=== PATIENT | male | born 1990 | race Caucasian/White ===

== ENCOUNTER → 2019-04-18 | Emergency (ER) | payer SELFPAY | END | disposition left against medical advice (07) | LOC: ER 20:52 | DX: R21 Rash and other nonspecific skin eruption (principal) ==

== ENCOUNTER 2019-04-28 06:13 | Emergency (ER) | payer SELFPAY ==
[~2019-04-28] VITALS: Ht 187 cm; Wt 115.0 kg
[2019-04-28 06:40] LABS: BILIRUBIN,URINE NEGATIVE (NEGATIVE); CLARITY,URINE CLEAR; COLOR,URINE YELLOW; GLUCOSE, URINE (UA) NEGATIVE (NEGATIVE); KETONES,URINE NEGATIVE (NEGATIVE); LEUKOCYTE ESTERASE ,URINE NEGATIVE (NEGATIVE); NITRITE,URINE NEGATIVE (NEGATIVE); PH,URINE 5 (5-9); PROTEIN,URINE NEGATIVE (NEGATIVE); UROBILINOGEN,URINE NORMAL (NORMAL)
[2019-04-28] MEDS ORDERED: NAPR-1071 PO (06:43)
--- NOTE | 2019-04-28 06:43 | ED Back Pain ---
General Chief Complaint: Back Problems Stated Complaint: BACK & RT LEG PAIN Nursing Triage Note: C/O PAIN IN LOWER BACK AND DOWN RIGHT LEG Nursing Sepsis Screen: No Definite Risk Source of Information: Patient Exam Limitations: No Limitations History of Present Illness Date Seen by Provider: Apr 28, 2019 Time Seen by Provider: 06:21 Initial Comments Patient presents to ER by private conveyance with his significant other and chief complaint of back pain that started Friday while carrying some groceries out of the car, 5 days ago. He does not have a significant history of back pain, imaging or surgery. He went to the clinic and they gave him a shot of Toradol and a muscle relaxant. He put him on cyclobenzaprine and prednisone but no NSAIDs. He is not taking Tylenol. He has not seen a chiropractor, back brace or using topical creams. He does not have sciatic pain radiating below the level of his right knee. He does not have saddle anesthesia, incontinence of bowel or bladder or urinary hesitancy, weakness numbness or inability to walk. Allergies and Home Medications Allergies Coded Allergies: No Known Drug Allergies (Unverified , 04/28/19) Home Medications Naproxen 500 Mg Tablet, 500 MG PO BID Prescribed by: ALLEN PHILLIPS on 04/28/19 0643 Patient Home Medication List Home Medication List Reviewed: Yes Review of Systems Constitutional: No chills, No diaphoresis EENTM: No ear discharge, No ear pain Respiratory: No cough, No short of breath Cardiovascular: No chest pain, No edema Gastrointestinal: No abdominal pain, No nausea Past Xfskmbn-[id number]-Brbxng Hx Patient Social History Alcohol Use: Denies Use Recreational Drug Use: No Smoking Status: Former Smoker Type Used: Cigarettes Former Smoker, Quit: Mar 28, 2019 Recent Foreign Travel: No Contact w/Someone Who Travel: No Recent Infectious Disease Expo: No Physical Abuse: No Sexual Abuse: No Mistreated: No Fear: No Physical Exam Vital Signs Vital Signs - First Documented 04/28/19 06:18 Temp 36.8 Pulse 74 Resp 20 B/P (MAP) 138/87 (104) Pulse Ox 96 Capillary Refill : Less Than 3 Seconds Height, Weight, BMI Height: '" Weight: lbs. oz. kg; 32.00 BMI Method: General Appearance: WD/WN, Mild Distress HEENT: PERRL/EOMI, Pharynx Normal Neck: Full Range of Motion, Normal Inspection, Non Tender Cardiovascular: Regular Rate, Rhythm, Normal Peripheral Pulses Respiratory: No Accessory Muscle Use, No Respiratory Distress Back: Normal Inspection, No CVA Tenderness, Muscle Spasm (paralumbar), Vertebral Tenderness ( Lumbar) Extremity: Normal Capillary Refill, Normal Inspection Procedures/Interventions Progress Risks, benefits and alternatives were explained for a 2% lidocaine with epinephrine and 0.5% Marcaine without epinephrine injection to the L5-S1 facet joint. The patient agreed to do it. We used sterile technique, iodine and thoroughly clean the skin. We used a 25-gauge 1-1/2 inch needle to insert 3 cc of the mixture into the L5-S1 facet joint. Patient tolerated procedure well. Band-Aid was placed and the wound was hemostatic. Progress/Results/Core Measures Results/Orders Lab Results Laboratory Tests Test 04/28/19 06:18 Range/Units Urine Color YELLOW Urine Clarity CLEAR Urine pH 5 5-9 Urine Specific Ferdinand 1.020 1.016-1.022 Urine Protein NEGATIVE NEGATIVE Urine Glucose (UA) NEGATIVE NEGATIVE Urine Ketones NEGATIVE NEGATIVE Urine Nitrite NEGATIVE NEGATIVE Urine Bilirubin NEGATIVE NEGATIVE Urine Urobilinogen NORMAL NORMAL MG/DL Urine Leukocyte Esterase NEGATIVE NEGATIVE Urine RBC (Auto) 2+ H NEGATIVE Urine RBC 2-5 H /HPF Urine WBC RARE /HPF Urine Squamous Epithelial Cells RARE /HPF Urine Crystals NONE /LPF Urine Bacteria NEGATIVE /HPF Urine Casts NONE /LPF Urine Mucus NEGATIVE /LPF Urine Culture Indicated NO My Orders Orders - ALLEN PHILLIPS Ua Culture If Indicated (04/28/19 06:15) Ketorolac Injection (Toradol Injection) (04/28/19 06:45) Orphenadrine Injection (Norflex Injectio (04/28/19 06:45) Bupivacaine 0.5% Injection (Sensorcaine (04/28/19 06:45) Vital Signs/I&O 04/28/19 06:18 Temp 36.8 Pulse 74 Resp 20 B/P (MAP) 138/87 (104) Pulse Ox 96 Blood Pressure Mean: 104 Progress Progress Note : Time: 06:40 Progress Note Toradol, Norflex, Marcaine/lidocaine injection at the L5-S1 facet joint. Pain presents as lumbago with sciatica or so than kidney stones. He has no CVA tenderness to percussion. He likely has asymptomatic microscopic hematuria versus kidney stone. We did offer to do a CT scan and he has declined at this time. Departure Impression Primary Impression: Lumbago with sciatica, right side Qualified Codes: M54.41 - Lumbago with sciatica, right side Additional Impression: Asymptomatic microscopic hematuria Disposition: 01 HOME, SELF-CARE Condition: Stable Departure-Patient Inst. Decision time for Depature: 06:57 Referrals: NO,LOCAL PHYSICIAN (PCP/Family) Primary Care Physician Patient Instructions: Blood in the Urine (Hematuria) in Adults, Sciatica (DC) Add. Discharge Instructions: Obtain a back brace and wear it on the days that it helps. Use heating pad and topical creams such as icy hot, Biofreeze, etc. Do not lift more than 40 pounds for the next week. Follow-up with chiropractor and/or primary care for physical therapy. Start taking the naproxen 1 tablet twice a day on a schedule for the next 2 weeks. You can use Tylenol 1000 mg every 8 hours in addition for breakthrough pain. You may use the cyclobenzaprine for muscle spasm. Continue taking the prednisone. Follow-up with primary care in approximately 2-4 weeks to have the urine retested for blood. All discharge instructions reviewed with patient and/or family. Voiced understanding. Scripts Naproxen (Naprosyn) 500 Mg Tablet 500 MG PO BID for 14 Days, #28 TAB 0 Refills Prov: ALLEN PHILLIPS 04/28/19 Work/School Note: Work Release Form Date Seen in the Emergency Department: Apr 28, 2019 Return to Work: Apr 29, 2019 Restrictions: Need Release from Doctor Other Restrictions Listed Below: No lift, push, fur puller 40 pounds until 05/05/19. ALLEN PHILLIPS Apr 28, 2019 06:43
[2019-04-28] MEDS ORDERED: BUPIVACAINE 0.5% 30 ML (SENSORCAINE) VIAL INJ ONE (06:45)
[2019-04-28] MEDS ORDERED: KETOROLAC 30 MG/ML VIAL IM ONE (06:45)
[2019-04-28] MEDS ORDERED: ORPHENADRINE 60 MG/2 ML (NORFLEX) AMP IM ONE (06:45)
[2019-04-28 06:47] LABS: BACTERIA,URINE NEGATIVE /HPF; SQUAMOUS EPITHELIAL CELL,UR RARE /HPF; WBC,URINE RARE /HPF
[2019-04-28 07:01] VITALS: BP 138/87
== END 2019-04-28 07:02 | disposition home or self-care (01) ==
LOC: EDUNIT# 06:13 → ER 06:16
DX: M54.41 Lumbago with sciatica, right side (principal); R31.21 Asymptomatic microscopic hematuria; Z87.891 Personal history of nicotine dependence
CPT/HCPCS: 81000; 99284

== ENCOUNTER → 2019-05-14 | Outpatient (CLI) | payer SELFPAY ==
[~2019-05-14] MED LIST: NAPR-1071 PO
--- NOTE | 2019-05-14 16:20 | Diagnostic Imaging Report ---
PROCEDURE: MRI lumbar spine. TECHNIQUE: Multiplanar, multisequence MRI of the lumbar spine was performed without contrast. INDICATION: Right thigh pain. Right foot numbness and tingling. FINDINGS: For the purposes of this exam, last well-formed disc space is denoted to be the L5-S1 level. Static alignment is maintained. There is no significant lorie or retrolisthesis. There is no evidence of jumped facets. Vertebral body heights are maintained. There is no evidence of acute fracture. Schmorl's node involving the inferior endplate of L3 is noted. Otherwise, marrow signal is unremarkable. Intervertebral disc heights are fairly well maintained, although there is loss of normal T2 bright signal at L3-L4 through L5-S1. Visualized portions of the distal cord are unremarkable. Conus terminates at approximately the T12-L1 level. No abnormal intrathecal filling defects are seen. Pre and paravertebral soft tissue structures are unremarkable. Axial images demonstrate the following: T12-L1 through L4-L5: There is no large disc bulge or focal protrusion. There is no significant spinal canal or neural foraminal stenosis. L5-S1: There is a large right paracentric posterior disc protrusion. This likely results in significant mass effect on the exiting right S1 nerve root. There is also moderate narrowing of the spinal canal. Neural foramen are unremarkable. IMPRESSION: 1. Large right paracentric posterior disc protrusion at L5-S1 resulting in significant mass effect on the exiting right S1 nerve root. 2. No acute fracture or dislocation of the lumbar spine. Dictated by: Dictated on workstation # [id number]
== END ==
LOC: RAD 15:28
PROVIDERS: ATTEND Physician Assistant
DX: M51.17 Intervertebral disc disorders with radiculopathy, lumbosacral region (principal)
CPT/HCPCS: 72148